=== PATIENT | female | born 1975 | race Caucasian/White ===

== ENCOUNTER → 2017-03-24 | Outpatient (CLI) | payer BC ==
[~2017-03-24] MED LIST: ALBUAER2 INH; ATOR-24 PO; LEVO50TA6 PO; OMEP40CA PO; RIZA1TAB11 PO; TOPI50TA24 PO; TRAZ50TA35 PO
== END | disposition home or self-care (01) ==
LOC: C.LABMFLN 15:48
PROVIDERS: ATTEND Physician Assistant
DX: M25.561 Pain in right knee (principal)